=== PATIENT | male | born 1980 | race Caucasian/White ===

== ENCOUNTER 2019-02-25 01:55 | Inpatient (IN) | payer OTHER ==
[~2019-02-25] VITALS: Ht 180.3 cm; Wt 78.4 kg
[2019-02-25 02:27] LABS: HEMATOCRIT 49.1 % (42.0-52.0); MEAN CORPUSCULAR HEMOGLOBIN 33.9 pg (27.0-33.0); MEAN CORPUSCULAR HGB CONC 34.6 g/dl (32.0-36.5); MEAN CORPUSCULAR VOLUME 97.8 fl (80.0-96.0); PLATELET COUNT, AUTOMATED 268 10^3/uL (150-450); RED BLOOD COUNT 5.02 10^6/uL (4.30-6.10); WHITE BLOOD COUNT 12.6 10^3/uL (4.0-10.0)
[2019-02-25 02:54] LABS: ACETAMINOPHEN LEVEL < 2.0 UG/ML (10.0-30.0); ALBUMIN 4.3 GM/DL (3.2-5.2); ALT/SGPT 38 U/L (12-78); BILIRUBIN,DIRECT 0.1 MG/DL (0.0-0.2); BILIRUBIN,TOTAL 0.3 MG/DL (0.2-1.0); BLOOD UREA NITROGEN 9 MG/DL (7-18); CALCIUM LEVEL 8.2 MG/DL (8.5-10.1); CARBON DIOXIDE LEVEL 22 MEQ/L (21-32); CHLORIDE LEVEL 109 MEQ/L (98-107); CREATININE FOR GFR 1.01 MG/DL (0.70-1.30); ETHYL ALCOHOL (ETHANOL) 0.306 % (0.000-0.010); GLOMERULAR FILTRATION RATE > 60.0 (>60); GLUCOSE, FASTING 134 MG/DL (70-100); POTASSIUM SERUM 3.5 MEQ/L (3.5-5.1); SODIUM LEVEL 145 MEQ/L (136-145); THYROID STIMULATING HORMONE 0.627 uIU/ML (0.358-3.740); TOTAL PROTEIN 7.5 GM/DL (6.4-8.2)
[2019-02-25] MEDS ORDERED: NICOTINE 21MG/24HR 1 EA TRANSDERMAL TD ONE (03:00)
[2019-02-25 03:06] LABS: AMPHETAMINES LEVEL URINE NEGATIVE (NEGATIVE); BARBITURATES URINE NEGATIVE (NEGATIVE); BENZODIAZEPINES URINE NEGATIVE (NEGATIVE); CANNABINOIDS URINE NEGATIVE (NEGATIVE); COCAINE METABOLITE URINE NEGATIVE (NEGATIVE); METHADONE URINE NEGATIVE (NEGATIVE); OPIATES URINE NEGATIVE (NEGATIVE); PHENCYCLIDINE URINE NEGATIVE (NEGATIVE)
[2019-02-25] MEDS ORDERED: VITATAB21 PO (07:30)
[2019-02-25] MEDS ORDERED: OXAZEPAM 15 MG CAP PO ONE (13:15)
[2019-02-25] MEDS ORDERED: LORazepam 2 MG TAB PO PRN (15:45)
[2019-02-25] MEDS ORDERED: MOM 30ML SUSPENSION UDC PO PRN (15:45)
[2019-02-25] MEDS ORDERED: MAALOX 30 ML SUSP *UDC PO PRN (15:45)
[2019-02-25] MEDS ORDERED: ACETAMINOPHEN TAB 650MG DOSE (2X325MG) PO PRN (15:45)
[2019-02-25] MEDS ORDERED: traZODone 50 MG TAB PO PRN (15:45)
[2019-02-25 17:02] VITALS: BP 153/89
[2019-02-25] MEDS: THIAMINE 100 MG TAB PO SCH (21:00)
[2019-02-26 06:45] VITALS: BP 137/86
[2019-02-26 06:52] VITALS: BP 137/86
[2019-02-26] MEDS: THIAMINE 100 MG TAB PO SCH ×2 (09:45→20:33)
[2019-02-26] MEDS: FOLIC ACID 1 MG TAB PO SCH (09:45)
[2019-02-26] MEDS: MULTIVITAMINS/MINERALS THERAP 1 TAB PO SCH (09:45)
[2019-02-26] MEDS ORDERED: CitaloPRAM (CeleXA) 10 MG TABLET PO ONE (11:00)
[2019-02-26] MEDS: NICOTINE 21MG/24HR 1 EA TRANSDERMAL TD SCH (11:25)
[2019-02-26] MEDS: GABAPENTIN 100 MG CAP PO SCH ×3 (11:25→20:33)
--- NOTE | 2019-02-26 13:02 | MHHPE ---
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 HISTORY OF PRESENT ILLNESS: The patient called a friend to take him to the hospital as he had suicidal thoughts after drinking alcohol. As reported by the patient, he was drinking a lot on that day. The patient has a history of alcohol dependence for the last 20 years. For the last 2 to 3 years it has increased. He drinks about five times a week, about a half of a bottle of whiskey each time. He thinks that he needs help with that. He has mild depression and anxiety. He has stress of work. Next year he is going to retire, but this has also been a reason of stress. His sleep is decreased. Appetite is good. His energy level is good. He was somewhat sad and tearful during the evaluation. PAST PSYCHIATRIC HISTORY: He has never been hospitalized in a psychiatric facility. He has never had any psychotropic medications. He has never been in therapy. He denies suicide attempts. DRUG/ALCOHOL HISTORY: As mentioned, he has alcohol dependence. He denies the use of any other drugs. He has never been to any rehabilitation. MEDICAL HISTORY: Denies medical problems. FAMILY HISTORY: Denies family history of mental illness. PERSONAL HISTORY: He was raised by both parents, born and raised in [place]. After high school graduation, he joined the [employer]. He has 20 years of service in the [employer]. He has two sisters. His mother is having Alzheimer's dementia, which is a cause of concern for him. He denies any history of physical or sexual abuse. MENTAL STATUS EXAMINATION: Tall, well built, well groomed. Behavior is cooperative. Eye contact is normal. Speech is spontaneous, conversant. Rate, rhythm, and volume are good. Thought process linear and goal directed. Mood is mildly depressed. Affect is somewhat tearful. Thought content: Denied any suicidal or homicidal ideas. Denied any paranoid or bizarre delusions. Cognition: He is alert, oriented to time, place and person. Memory, immediate and recent, good. His insight and judgment are fair. LABORATORIES : CBC within normal limits. CMP: His AST was 46, probably because of his alcohol use. Fasting glucose was 134. His toxicology was within normal limits. Alcohol level was 0.06. CURRENT MEDICATIONS: - trazodone 50 mg at night as needed - folic acid 1 mg daily - thiamine 100 mg twice a day REVIEW OF SYSTEMS: CONSTITUTIONAL: Negative for night sweats and fever. HEENT: Negative for epistaxis, headache, hearing loss. RESPIRATORY: No cough. No shortness of breath. No wheezing. CARDIOVASCULAR: Negative for chest pain or dyspnea. GASTROINTESTINAL: No abdominal pain. No change in bowel habits. GENITOURINARY: No dysuria or trouble voiding. MUSCULOSKELETAL: No gait disturbance. No joint pain. NEUROLOGIC: No gait disturbance. No numbness. No tingling. No dizziness. All other systems are negative. DIAGNOSES: 1. Depressive disorder, unspecified. 2. Rule out substance depressive disorder. 3. Alcohol use disorder. TREATMENT RECOMMENDATIONS: 1. Admit to inpatient mental health unit. 2. Followup with farm crew leader for medical needs. 3. Will be seen by vp digital marketing social media and crm and case management. 4. He will be placed on appropriate precautions, 15 minute check, suicide precautions. 5. The patient will participate in appropriate activities, individual, group and milieu therapy. Psychoeducation will be provided. 6. Medications: I will place him on gabapentin 100 mg three times a day and titrate the dose. The patient is on hydroxyzine 25 mg every 6 hours as needed. I will place him on citalopram 10 mg once daily. Estimated length of stay is 4 to 5 days.
[2019-02-26 18:00] VITALS: BP 148/86
--- NOTE | 2019-02-26 18:37 | CR.PDOC ---
General Date of Consultation: Feb 26, 2019 Consultation REASON FOR CONSULTATION/CHIEF COMPLAINT: [ new psych admission ]. HISTORY OF PRESENT ILLNESS: This is a 38 yo male with no pmhx who called a friend to take him to the hospital as he had suicidal thoughts after drinking alcohol heavily over the weekend. Patient is a chronic drinker of varying amounts. The patient has a history of alcohol dependence for the last 20 years. For the last 2 to 3 years it has increased. He drinks about five times a week, about a half of a bottle of whiskey each time. He thinks that he needs help with that. He has some depression and anxiety, which is exacerbated by stress of work and his mother's illness. His sleep is decreased. Appetite is good. His energy level is good. He was somewhat sad and tearful during the evaluation. He has never been hospitalized in a psychiatric facility. He has never had any psychotropic medications. He has never been in therapy. He denies suicide attempts. denied family hx of psych problems. 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 HOME MEDICATIONS: Please see below. PAST MEDICAL HISTORY: none PAST SURGICAL HISTORY: inguinal hernia repair 1 salivary gland removal PHYSICAL EXAMINATION: VITAL SIGNS: Please see below. Gen: NAD, healthy appearing , anxious and sad HEENT: normocephalic, atraumatic, no discharge from ears or nose, no oropharyngeal erythema or exudate, neck is supple, no lymphadenopathy, trachea midline CVS: RRR, normal S1n S2, no murmur, rubs, or gallops, no edema, no jvd Resp: LCTAB, no rhonchi, wheezes or crackles Abd : soft nontender, normal bowel sounds, no rebound tenderness or guarding MSK: no swelling, full range of motion, strength 5/5 Neuro: AOAx3, no confusion, no focal deficit Psych: sad and affect, good judgment LABORATORY DATA: Please see below. ASSESSMENT/PLAN: Patient is admitted for suicidal thoughts - new onset mild depression and anxiety - mgt per psych - utox negative -on antidepressant Etoh abuse monitor for withdrawal symptoms - ciwa 2 -consider po folic acid and thiamine -consider mvt -counseled on etoh cessation - patient wants help to quit -on ativan prn Smoking hx - chronic ,. extensive - counseled on smoking cessation <10 mins - patient is aware of risks of smoking - c/w nicotine patch dvt ppx - none - very ambulatory full code , from home Vital Signs/I&O Vital Signs Date Time Temp Pulse Resp B/P (MAP) Pulse Ox O2 Delivery O2 Flow Rate FiO2 02/26/19 06:52 70 137/86 02/26/19 06:45 99.3 14 02/25/19 17:02 98 02/25/19 14:54 Room Air Allergies Coded Allergies: No Known Allergies (Unverified , 02/25/19) Home Medications Scheduled (Vitamin C Plus 1000 mg) 1 Tab Tab, 1,000 MG PO DAILY, (Reported) ALYSSA BETANCUR MD Feb 26, 2019 18:37
[2019-02-26 20:18] VITALS: BP 144/88
[2019-02-27 07:00] VITALS: BP 135/84
[2019-02-27] MEDS: FOLIC ACID 1 MG TAB PO SCH (08:56)
[2019-02-27] MEDS: NICOTINE 21MG/24HR 1 EA TRANSDERMAL TD SCH (08:56)
[2019-02-27] MEDS: THIAMINE 100 MG TAB PO SCH ×2 (08:56→20:20)
[2019-02-27] MEDS: GABAPENTIN 100 MG CAP PO SCH ×3 (08:56→20:20)
[2019-02-27] MEDS: MULTIVITAMINS/MINERALS THERAP 1 TAB PO SCH (08:56)
[2019-02-27] MEDS: hydrOXYzine 25 MG TAB PO PRN (08:57)
[2019-02-27] MEDS ORDERED: NICOTINE 21MG/24HR 1 EA TRANSDERMAL TD SCH (09:00)
[2019-02-27 11:47] VITALS: BP 135/84
--- NOTE | 2019-02-27 13:10 | MHIPN ---
DATE: 02/27/2019 SUBJECTIVE: I slept better yesterday. 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 The patient has a history of alcohol dependence. The patient also has depression and anxiety. This is his first psychiatric hospitalization. Never had an psychotropic medications in the past. Currently he is doing well, but still depressed. MENTAL STATUS EXAMINATION: Casually dressed, cooperative. Made good eye contact. Psychomotor activity is normal. Mood is mildly depressed. Affect is appropriate for the mood. Speech rate, rhythm and volume are good. Thought process linear, goal directed. Denied any auditory or visual hallucinations. Denied any suicidal or homicidal ideas. His memory immediate, remote and recent are good. He is alert and oriented to time, place and person. VITAL SIGNS: Temperature 97.7, pulse is 56, respiratory rate is 18, blood pressure is 135/84. LABS: Toxicology: Ethyl alcohol level was 0.306, otherwise it was negative. CBC, CMP within normal limits. CURRENT MEDICATIONS: - gabapentin 100 mg three times a day - trazodone 50 mg at bedtime as needed PLAN: Plan is to add Remeron 50 mg at night, titrate the dose. Continue individual and group therapy. Continuity of care was provided to social work and case management and nursing team. Estimated length of stay, 3-4 days.
[2019-02-27 18:00] VITALS: BP 134/78
[2019-02-27] MEDS: MIRTAZAPINE 15 MG TAB PO SCH (21:49)
[2019-02-28 05:00] VITALS: BP 120/69
[2019-02-28 06:48] VITALS: BP 120/69
[2019-02-28] MEDS: THIAMINE 100 MG TAB PO SCH (09:21)
[2019-02-28] MEDS: FOLIC ACID 1 MG TAB PO SCH (09:21)
[2019-02-28] MEDS: NICOTINE 21MG/24HR 1 EA TRANSDERMAL TD SCH (09:22)
[2019-02-28] MEDS: GABAPENTIN 100 MG CAP PO SCH ×3 (09:22→21:15)
[2019-02-28] MEDS: MULTIVITAMINS/MINERALS THERAP 1 TAB PO SCH (09:22)
--- NOTE | 2019-02-28 11:20 | MHIPN ---
DATE: 02/28/2019 SUBJECTIVE: "I am a little anxious because my roommate is getting discharged and I will have a new roommate". 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 This is his first psychiatric hospitalization. Now complains of anxiety and depression. MENTAL STATUS EXAMINATION: Casually dressed, cooperative. Made good eye contact. Psychomotor activity is normal. Mood is depressed. Affect is appropriate for the mood, somewhat anxious. Speech rate, rhythm and volume are good. Thought process linear, goal directed. Denied auditory or visual hallucinations. Denied suicidal or homicidal ideas. His memory immediate, remote and recent are good. He is alert and oriented to time, place and person. DIAGNOSES: Depressive disorder, unspecified. Rule out substance induced mood disorder. Alcohol use disorder. VITAL SIGNS: Temperature 98, pulse 50, respiratory rate 14, blood pressure 120/69. PLAN: Continue current medications with Remeron 50 mg at night, gabapentin 100 mg three times daily. Estimated length of stay, 3-4 days.
[2019-02-28] MEDS: hydrOXYzine 25 MG TAB PO PRN (16:02)
[2019-02-28 18:00] VITALS: BP 143/87
[2019-02-28] MEDS: MIRTAZAPINE 15 MG TAB PO SCH (22:20)
[2019-03-01 06:47] VITALS: BP 117/70
[2019-03-01] MEDS: MULTIVITAMINS/MINERALS THERAP 1 TAB PO SCH (08:46)
[2019-03-01] MEDS: GABAPENTIN 100 MG CAP PO SCH ×3 (08:46→21:12)
[2019-03-01] MEDS: FOLIC ACID 1 MG TAB PO SCH (08:46)
[2019-03-01] MEDS: NICOTINE 21MG/24HR 1 EA TRANSDERMAL TD SCH (08:47)
[2019-03-01 18:27] VITALS: BP 148/89
[2019-03-01 21:10] VITALS: BP 148/89
[2019-03-01] MEDS: MIRTAZAPINE 15 MG TAB PO SCH (22:34)
[2019-03-02 06:56] VITALS: BP 115/60
[2019-03-02] MEDS: NICOTINE 21MG/24HR 1 EA TRANSDERMAL TD SCH (08:35)
[2019-03-02] MEDS: MULTIVITAMINS/MINERALS THERAP 1 TAB PO SCH (08:35)
[2019-03-02] MEDS: GABAPENTIN 100 MG CAP PO SCH ×3 (08:35→20:52)
[2019-03-02] MEDS: FOLIC ACID 1 MG TAB PO SCH (08:35)
[2019-03-02] MEDS: hydrOXYzine 25 MG TAB PO PRN (17:23)
[2019-03-02 18:00] VITALS: BP 147/74
[2019-03-02] MEDS: MIRTAZAPINE 15 MG TAB PO SCH (20:52)
[2019-03-03 06:44] VITALS: BP 118/73
[2019-03-03 06:47] VITALS: BP 118/73
[2019-03-03] MEDS: NICOTINE 21MG/24HR 1 EA TRANSDERMAL TD SCH (08:51)
[2019-03-03] MEDS: GABAPENTIN 100 MG CAP PO SCH ×3 (09:12→20:38)
[2019-03-03 18:15] VITALS: BP 158/92
[2019-03-03] MEDS: MIRTAZAPINE 15 MG TAB PO SCH (21:57)
[2019-03-04 07:07] VITALS: BP 124/67
[2019-03-04] MEDS: NICOTINE 21MG/24HR 1 EA TRANSDERMAL TD SCH (08:50)
[2019-03-04] MEDS: hydrOXYzine 25 MG TAB PO PRN (08:50)
[2019-03-04] MEDS: GABAPENTIN 100 MG CAP PO SCH (08:50)
[2019-03-04] MEDS ORDERED: REME15TA PO (09:43)
[2019-03-04] MEDS ORDERED: TRAZO50TA PO (09:43)
[2019-03-04] MEDS ORDERED: GABA-1171 PO (09:43)
[2019-03-04] MEDS ORDERED: HYDR-3363 PO (09:43)
--- NOTE | 2019-03-04 09:44 | MHDSPDOC ---
[facility] Discharge Summary Discharge Summary DATE OF ADMISSION: Feb 25, 2019 at 3:34 pm DATE OF DISCHARGE: March 04, 2019 DISCHARGE DIAGNOSES: Depressive disorder, unspecified. Rule out substance induced mood disorder. Alcohol use disorder. 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 HISTORY OF PRESENT ILLNESS: The patient called a friend to take him to the hospital as he had suicidal thoughts after drinking alcohol. As reported by the patient, he was drinking a lot on that day. The patient has a history of alcohol dependence for the last 20 years. For the last 2 to 3 years it has increased. He drinks about five times a week, about a half of a bottle of whiskey each time. He thinks that he needs help with that. He has mild depression and anxiety. He has stress of work. Next year he is going to retire, but this has also been a reason of stress. His sleep is decreased. Appetite is good. His energy level is good. He was somewhat sad and tearful during the evaluation." CONSULTANTS INVOLVED: none TREATMENT AND PROGRESS ON THE UNIT : Pt was admitted to [facility], seen for psychiatric assessment and started remeron 30mg daiy and gabapentin 300mg tid. He was provided trazodone 50mg qhs prn insomnia. Pt found his medications beneficial and tolerated them well. He attended groups daily during his stay. His symptoms improved with treatment. On day of discharge he denied depression, anxiety, insomnia, SI/HI, hallucinations, delusions. He was discharged home after Savi meeting with follow-up at [facility]. He felt safe for discharge. DISCHARGE ASSESSMENT: Pt seen and states that his mood is good. States he slept well last night. Feels he is tolerating his medications and they're beneficial. He is attending groups and finding them helpful. He denies depression, anxiety, insomnia, SI/HI, hallucinations, delusions. Pt feels safe to be discharged home with his Savi. MENTAL STATUS EXAMINATION ON DISCHARGE: Casually dressed, cooperative. Made good eye contact. Psychomotor activity is normal. Mood is euthymic, full. Affect is appropriate for the mood, somewhat anxious. Speech rate, rhythm and volume are good. Thought process linear, goal directed. Denied auditory or visual hallucinations. Denied suicidal or homicidal ideas. His memory immediate, remote and recent are good. He is alert and oriented to time, place and person. MEDICATIONS ON DISCHARGE: Remeron 30 mg at night gabapentin 100 mg three times daily. PLAN/FOLLOWUP ARRANGEMENTS: d/c home with [facility] with follow-up at [facility]. The amount of time spent in the coordination of care for this patient was approximately 30 minutes. Vital Signs/I&Os Vital Signs Date Time Temp Pulse Resp B/P (MAP) Pulse Ox O2 Delivery O2 Flow Rate FiO2 03/04/19 07:07 98.2 66 16 124/67 (86) Medications Scheduled (Vitamin C Plus 1000 mg) 1 Tab Tab, 1,000 MG PO DAILY, (Reported) Allergies Coded Allergies: No Known Allergies (Unverified , 02/25/19) ZENIA BASS DO Mar 04, 2019 9:44 am
== END 2019-03-04 12:00 | disposition home or self-care (01) | DRG 881 ==
LOC: M ED 01:55 → M ED INP 15:34 → M PSY 16:50
PROVIDERS: ADMIT Psychiatry & Neurology Psychiatry; ATTEND Psychiatry & Neurology Psychiatry
DX: F32.9 Major depressive disorder, single episode, unspecified (principal); R45.851 Suicidal ideations; F10.10 Alcohol abuse, uncomplicated; F19.94 Other psychoactive substance use, unspecified with psychoactive substance-induced mood disorder; F17.200 Nicotine dependence, unspecified, uncomplicated

== ENCOUNTER → 2020-09-29 | Outpatient (CLI) | payer OTHER ==
[~2020-09-29] MED LIST: GABA-1171 PO; HYDR-3363 PO; REME15TA PO; TRAZ1TAB10 PO; VITATAB21 PO
--- NOTE | 2020-09-30 10:03 | ECHO ---
DATE OF PROCEDURE: 09/29/2020 Age: 39 Gender: Male Height: 71 inches Weight: 170 pounds REFERRING PHYSICIAN: Sahara Nesbitt NP. INDICATION: Palpitations. MEASUREMENTS: 2D Measurements: Left atrium 3.4 cm Aortic root 3.0 cm Interventricular septum 1.08 cm Posterior wall 1.17 cm Left ventricle diastole 5.3 cm Inferior vena cava 1.7 cm (more than 50% respiratory variation) Doppler Measurements: No aortic regurgitation No aortic stenosis Aortic valve velocity 117 cm/s LVOT velocity 78.2 cm/s Very mild mitral regurgitation within normal limits Mitral E velocity 59.2 cm/s Mitral A velocity 42.4 cm/s Mitral deceleration time 140 m/s Trace tricuspid regurgitation No pulmonic regurgitation Pulmonary artery systolic pressure 16 mmHg MITRAL ANNULAR TISSUE DOPPLER E prime septal 9.5 cm/s, E prime lateral 15.8 cm/s DESCRIPTION: Rhythm was sinus. Image quality was good. No pericardial effusion. This was a 2D, M-mode, color flow Doppler, and pulsed wave Doppler examination including mitral annular tissue Doppler. CONCLUSIONS: 1. Normal echocardiogram Doppler. 2. Normal left ventricle internal dimensions and wall thickness. 3. Normal regional LV wall motion and wall thickening. 4. Normal LV systolic function. LVEF 60% by visual estimate. 5. Normal LV diastolic function. MTDD
== END ==
LOC: M CARPUL 09:16
PROVIDERS: ATTEND Nurse Practitioner Family
DX: R00.2 Palpitations (principal)

== ENCOUNTER → 2023-02-15 | Outpatient (CLI) | payer OTHER ==
[~2023-02-15] MED LIST changes: +MIRT-62 PO; -REME15TA PO; +SILD100T PO; +VITATAB73 PO; +VITMTA PO
== END ==
LOC: M LABSMTC 09:46
PROVIDERS: ATTEND Anesthesiology
DX: Z20.828 Contact with and (suspected) exposure to other viral communicable diseases (principal); Z11.52 Encounter for screening for COVID-19

== ENCOUNTER 2023-02-20 11:48 | Day surgery (SDC) | payer OTHER ==
[~2023-02-20] VITALS: Ht 180.3 cm; Wt 81.6 kg
[~2023-02-20 11:48] MED LIST changes: +NS 1,000 ML IV ONE
[2023-02-20 14:25] VITALS: BP 120/63
== END 2023-02-20 14:33 | disposition home or self-care (01) ==
LOC: M OPP 11:48
PROVIDERS: ATTEND Internal Medicine Gastroenterology
DX: K63.5 Polyp of colon (principal); K57.30 Diverticulosis of large intestine without perforation or abscess without bleeding; K64.0 First degree hemorrhoids; F17.200 Nicotine dependence, unspecified, uncomplicated; Z79.899 Other long term (current) drug therapy